=== PATIENT | female | born 1975 | race Caucasian/White ===

== ENCOUNTER 2023-12-03 15:24 | Emergency (ER) | payer BC ==
[~2023-12-03] VITALS: Ht 165.1 cm; Wt 64.0 kg
[2023-12-03 15:32] VITALS: BP 187/113; PULSE 102; RESP 18; TEMP 98.3; O2SAT 100
[2023-12-03] MEDS: CYCLOBENZAPRINE 10MG TABLET PO ONE (16:00)
[2023-12-03] MEDS ORDERED: CYCL10TA21 MT (18:27)
== END 2023-12-03 19:03 | disposition home or self-care (01) ==
LOC: ER 15:24
DX: S00.83XA Contusion of other part of head, initial encounter (principal); S80.01XA Contusion of right knee, initial encounter; S16.1XXA Strain of muscle, fascia and tendon at neck level, initial encounter; V49.59XA Passenger injured in collision with other motor vehicles in traffic accident, initial encounter; Y93.89 Activity, other specified; Y92.89 Other specified places as the place of occurrence of the external cause; Y99.8 Other external cause status
CPT/HCPCS: 70486; 81025; 99284